=== PATIENT | female | born 1970 | race Hispanic/Latino ===

== ENCOUNTER 2017-09-29 12:42 | Outpatient (CLI) | payer MEDICAID ==
--- NOTE | 2017-09-29 13:52 | Mammography Report ---
Bilateral mammogram: No previous studies available. CAD study utilized. Findings: Predominance of adipose tissue bilaterally. No mass or microcalcification. Benign axilla. Impression: Benign findings. Annual followup recommended. BI-RADS CATEGORY: 2 = Benign ACR BI-RADS MAMMOGRAPHIC CODES: 0 = Needs additional imaging evaluation; 1 = Negative; 2 = Benign; 3 = Probably benign; 4 = Suspicious; 5 = Malignant; 6 = Known biopsy-proven malignancy COMMENT: 1. Dense breast tissue, i.e., adenosis, fibrocystic changes, etc., may obscure an underlying neoplasm. 2. Approximately 10% of cancers are not detected with mammography. 3. A negative mammography report should not delay biopsy if a clinically suspicious mass is present. COMMENT: Patient follow-up letters are generated in [employer].
== END 2017-09-29 12:43 | disposition home or self-care (01) ==
LOC: MAMMO 12:42
PROVIDERS: ATTEND Internal Medicine
DX: Z12.31 Encounter for screening mammogram for malignant neoplasm of breast (principal)
CPT/HCPCS: 77067

== ENCOUNTER 2018-06-11 15:13 | Emergency (ER) | payer MEDICAID ==
[2018-06-11 16:01] LABS: BUN/Creatinine Ratio 15; Blood Urea Nitrogen 9 mg/dL (7-17); Calcium 8.5 mg/dL (8.4-10.2); Hemolysis Index 7
[2018-06-11] MEDS ORDERED: ZOFRAN IV ONE (16:02)
[2018-06-11 16:03] LABS: Basophils % (Auto) 0.4 % (0.0-1.8); Eosinophils # (Auto) 0.1 K/mm3 (0.0-0.4); Eosinophils % (Auto) 2.2 % (0.0-4.3); Hematocrit 36.9 % (30.3-42.9); Hemoglobin 12.3 gm/dl (10.1-14.3); Lymphocytes # (Auto) 0.5 K/mm3 (1.2-5.4); Mean Corpuscular HGB Conc 33 % (30-34); Mean Corpuscular Volume 83 fl (79-97); Monocytes # (Auto) 0.1 K/mm3 (0.0-0.8); Monocytes % (Auto) 3.2 % (0.0-7.3); Platelet Count 284 K/mm3 (140-440); Red Blood Count 4.44 M/mm3 (3.65-5.03); Red Cell Distribution Width 15.9 % (13.2-15.2)
--- NOTE | 2018-06-11 16:10 | Emergency Department Report ---
ED General Adult HPI - General Chief complaint: Dyspnea/Respdistress Stated complaint: CHEST PAIN Time Seen by Provider: 06/11/18 15:56 Source: EMS Mode of arrival: Stretcher Limitations: No Limitations - History of Present Illness Initial comments: Patient is oriented to his old female, obese, history of COPD, hypertension diabetes and obstructive sleep apnea. Patient presented to the ER via EMS complaining of right lower chest pain associated with shortness of breath. Patient stated that pain increases with deep inspiration. Patient denied any chills, cough, nausea or vomiting. - Related Data Home Medications Medication Instructions Recorded Confirmed Last Taken Baclofen 20 mg PO Q6H 07/22/16 06/11/18 07/22/16 ALBUTEROL Inhaler (OR & NICU) 2 puff IH QID PRN 07/23/16 07/23/16 1 Day Ago [ProAir HFA Inhaler] ~07/22/16 Previous Rx's Medication Instructions Recorded Last Taken Type Zolpidem [Ambien] 5 mg PO QHS PRN #30 tablet 04/23/15 07/22/16 Rx glipiZIDE [Glucotrol] 5 mg PO BIDDIAB@0800,1700 #60 04/23/15 07/22/16 Rx tablet ALPRAZolam [Xanax TAB] 0.25 mg PO Q8H PRN #15 tablet 07/24/16 Unknown Rx Aspirin [Aspirin BABY CHEW TAB] 81 mg PO QDAY tab.chew 07/24/16 Unknown Rx AtorvaSTATin [Lipitor] 40 mg PO QHS tablet 07/24/16 Unknown Rx Carvedilol [Coreg] 12.5 mg PO BID #60 tablet 07/24/16 Unknown Rx amLODIPine [Norvasc] 10 mg PO QDAY #30 tablet 07/24/16 Unknown Rx hydrALAZINE [Apresoline TAB] 50 mg PO Q8HR #90 tablet 07/24/16 Unknown Rx Naproxen [Naprosyn] 500 mg PO BID PRN #20 tablet 06/11/18 Unknown Rx Allergies Allergy/AdvReac Type Severity Reaction Status Date / Time codeine Allergy Hives Verified 06/11/18 15:22 ED Review of Systems ROS: Stated complaint: CHEST PAIN Other details as noted in HPI Comment: All other systems reviewed and negative Constitutional: chills. denies: fever Respiratory: denies: cough, orthopnea, shortness of breath, SOB with exertion, SOB at rest, wheezing Cardiovascular: chest pain, palpitations, dyspnea on exertion, orthopnea Gastrointestinal: denies: abdominal pain, nausea, vomiting, diarrhea, constipation, hematemesis, melena, hematochezia Genitourinary: denies: urgency, dysuria, frequency, hematuria ED Past Medical Hx - Past Medical History Previous Medical History?: Yes Hx Hypertension: Yes Hx CVA: Yes (L. sided weakness) Hx Congestive Heart Failure: No Hx Diabetes: Yes Hx Renal Disease: No Hx Arthritis: Yes Hx Seizures: No Hx Asthma: No Hx COPD: Yes Hx HIV: No Additional medical history: [place] - Surgical History Past Surgical History?: No Hx Pacemaker: No - Social History Smoking Status: Never Smoker Substance Use Type: None - Medications Home Medications: Home Medications Medication Instructions Recorded Confirmed Last Taken Type Zolpidem [Ambien] 5 mg PO QHS PRN #30 tablet 04/23/15 06/11/18 07/22/16 Rx glipiZIDE [Glucotrol] 5 mg PO BIDDIAB@0800,1700 #60 04/23/15 06/11/18 07/22/16 Rx tablet Baclofen 20 mg PO Q6H 07/22/16 06/11/18 07/22/16 History ALBUTEROL Inhaler (OR & NICU) 2 puff IH QID PRN 07/23/16 07/23/16 1 Day Ago History [ProAir HFA Inhaler] ~07/22/16 ALPRAZolam [Xanax TAB] 0.25 mg PO Q8H PRN #15 tablet 07/24/16 Unknown Rx Aspirin [Aspirin BABY CHEW TAB] 81 mg PO QDAY tab.chew 07/24/16 06/11/18 Unknown Rx AtorvaSTATin [Lipitor] 40 mg PO QHS tablet 07/24/16 06/11/18 Unknown Rx Carvedilol [Coreg] 12.5 mg PO BID #60 tablet 07/24/16 06/11/18 Unknown Rx amLODIPine [Norvasc] 10 mg PO QDAY #30 tablet 07/24/16 06/11/18 Unknown Rx hydrALAZINE [Apresoline TAB] 50 mg PO Q8HR #90 tablet 07/24/16 06/11/18 Unknown Rx Naproxen [Naprosyn] 500 mg PO BID PRN #20 tablet 06/11/18 Unknown Rx ED Physical Exam - General Limitations: No Limitations General appearance: alert, in no apparent distress - Head Head exam: Present: atraumatic, normocephalic, normal inspection - Eye Eye exam: Present: normal appearance, PERRL - ENT ENT exam: Present: normal exam, normal orophraynx, mucous membranes moist - Neck Neck exam: Present: normal inspection, full ROM. Absent: tenderness, meningismus, lymphadenopathy, thyromegaly - Respiratory Respiratory exam: Present: normal lung sounds bilaterally. Absent: respiratory distress, wheezes, rales, rhonchi, stridor, chest wall tenderness, accessory muscle use, decreased breath sounds, prolonged expiratory - Cardiovascular Cardiovascular Exam: Present: regular rate, normal rhythm, normal heart sounds - GI/Abdominal GI/Abdominal exam: Present: soft, tenderness (quadrant tenderness), normal bowel sounds. Absent: distended, guarding, rebound, rigid, organomegaly, mass, bru it, pulsatile mass, hernia - Extremities Exam Extremities exam: Present: normal inspection, full ROM, normal capillary refill, pedal edema - Back Exam Back exam: Present: normal inspection, full ROM - Neurological Exam Neurological exam: Present: alert, oriented X3, CN II-XII intact - Skin Skin exam: Present: warm, intact, normal color ED Course Vital Signs 06/11/18 06/11/18 06/12/18 15:39 20:00 03:16 Temperature 98.8 F Pulse Rate 107 H 99 H 99 H Respiratory 18 22 14 Rate Blood Pressure 141/77 123/71 [Right] O2 Sat by Pulse 98 98 98 Oximetry - Reevaluation(s) Reevaluation #1: 06/11/18 19:47 Patient evaluated by me multiple times. Patient stated that she is feeling much better after the pain medicine. Patient is asking for food. ED Medical Decision Making - Lab Data Result diagrams: 06/11/18 15:27 06/11/18 16:05 - Radiology Data Radiology results: report reviewed CTA of the chest showed no pulmonary embolism or other lung pathology. Critical care attestation.: If time is entered above; I have spent that time in minutes in the direct care of this critically ill patient, excluding procedure time. ED Disposition Clinical Impression: Right-sided chest pain, Right upper quadrant abdominal pain Disposition: TO HOME OR SELFCARE Is pt being admited?: No Condition: Stable Instructions: Chest Pain (ED) Prescriptions: Naproxen [Naprosyn] 500 mg PO BID PRN #20 tablet PRN Reason: pain Referrals: MAURILIO YA MD [Primary Care Provider] - 3-5 Days
[2018-06-11] MEDS ORDERED: SUBLIMAZE IV ONE (17:00)
--- NOTE | 2018-06-11 17:13 | XRay Report ---
FINAL REPORT EXAM: XR CHEST 1V AP HISTORY: Shortness of breath TECHNIQUE: upright single view chest PRIORS: None. FINDINGS: Cardiac and mediastinal contours are unremarkable. No focal pulmonary infiltrate is identified. No pleural fluid collection seen. Pulmonary vasculature is unremarkable. IMPRESSION: Negative single-view chest
[2018-06-11 17:20] LABS: Alanine Aminotransferase < 5 units/L (7-56); Albumin 3.2 g/dL (3.9-5); BUN/Creatinine Ratio 15; Blood Urea Nitrogen 9 mg/dL (7-17); Calcium 8.6 mg/dL (8.4-10.2); Hemolysis Index 8
[2018-06-11 19:25] LABS: Bacteria,Urine 1+ /HPF (Negative); Bilirubin,Urine NEG (Negative); Blood,Urine NEG (Negative); Color,Urine Amber (Yellow); Mucus,Urine 1+ /HPF; Protein,Urine <15 mg/dL mg/dL (Negative); Urobilinogen,Urine < 2.0 mg/dL (<2.0)
--- NOTE | 2018-06-11 19:33 | Cat Scan Report ---
FINAL REPORT EXAM: CT ANGIO CHEST HISTORY: CHEST PAIN WITH SOB. PT EXTREMELY LARGE BODY HABITUS. TECHNIQUE: CT chest CT angiogram with intravenous contrast. Multiplanar and 3D maximum intensity p rojection reconstructions PRIORS: None. FINDINGS: There is no evidence of filling defect within the central pulmonary vasculature to suggest the presen ce of acute pulmonary embolus. No evidence of mediastinal pathologic lymph node enlargement Heart and great vessels are unremarkable. The aorta is normal in caliber. No focal pulmonary infiltrate identified. No pleural fluid collection seen. No acute pulmonary abnor mality noted. Visualized portion of the upper abdomen demonstrates no acute change. IMPRESSION: Negative. No CT evidence of acute pulmonary embolus
--- NOTE | 2018-06-11 21:00 | Ultrasound Report ---
FINAL REPORT EXAM: US ABDOMEN LIMITED HISTORY: right upper quadrant pain TECHNIQUE: Ultrasound abdomen PRIORS: None. FINDINGS: No acute abnormality identified visualized portion the abdomen No evidence for cholelithiasis or gallbladder wall thickening. Common bile duct is within normal limits 0.8 centimeters Right kidney is 11.7 x 4.9 by 4.5 centimeters. Cortical thickness 1.4 centimeters. No evidence for hy dronephrosis The pancreas was not visualized IMPRESSION: Negative no acute abnormality seen
[2018-06-12] MEDS ORDERED: SUBLIMAZE IV ONE (03:09)
[2018-06-12 03:17] VITALS: BP 123/71
== END 2018-06-12 09:11 | disposition home or self-care (01) ==
LOC: ED 15:13
DX: R07.89 Other chest pain (principal); R10.11 Right upper quadrant pain; R06.02 Shortness of breath; I10 Essential (primary) hypertension; E11.9 Type 2 diabetes mellitus without complications; M19.90 Unspecified osteoarthritis, unspecified site; J44.9 Chronic obstructive pulmonary disease, unspecified; Z86.73 Personal history of transient ischemic attack (TIA), and cerebral infarction without residual deficits; Z79.899 Other long term (current) drug therapy; Z88.4 Allergy status to anesthetic agent
CPT/HCPCS: 36415; 71045; 71275; 76705; 80048; 80053; 81001; 83690; 83880; 84703; 85025; 85379; 93005; 93010; 96374; 96375; 96376; 99285; J2405; J3010; Q9967

== ENCOUNTER 2018-07-27 09:31 | Outpatient (CLI) | payer MEDICAID ==
[2018-07-27] MEDS ORDERED: XYLOCAINE TOPICAL 4% TP ONE (10:00)
== END 2018-07-27 09:32 | disposition home or self-care (01) ==
LOC: WOUND 09:31
PROVIDERS: ATTEND Surgery
DX: E11.622 Type 2 diabetes mellitus with other skin ulcer (principal); L98.492 Non-pressure chronic ulcer of skin of other sites with fat layer exposed; L89.154 Pressure ulcer of sacral region, stage 4; I10 Essential (primary) hypertension; Z86.73 Personal history of transient ischemic attack (TIA), and cerebral infarction without residual deficits; Z86.718 Personal history of other venous thrombosis and embolism; Z87.891 Personal history of nicotine dependence
CPT/HCPCS: 11042; G0463; 99204; 99214

== ENCOUNTER 2018-08-03 10:02 | Outpatient (CLI) | payer MEDICAID ==
[2018-08-03] MEDS ORDERED: XYLOCAINE TOPICAL 4% TP ONE (11:00)
== END 2018-08-03 10:03 | disposition home or self-care (01) ==
LOC: WOUND 10:02
PROVIDERS: ATTEND Surgery
DX: E11.622 Type 2 diabetes mellitus with other skin ulcer (principal); L98.492 Non-pressure chronic ulcer of skin of other sites with fat layer exposed; L89.154 Pressure ulcer of sacral region, stage 4; I10 Essential (primary) hypertension; Z86.73 Personal history of transient ischemic attack (TIA), and cerebral infarction without residual deficits; Z86.718 Personal history of other venous thrombosis and embolism; Z87.891 Personal history of nicotine dependence